=== PATIENT | female | born 1995 | race African-American/Black ===

== ENCOUNTER 2017-04-27 12:40 | Emergency (ER) | payer MEDICAID ==
[~2017-04-27] VITALS: Ht 172.7 cm; Wt 120.0 kg
[2017-04-27] MEDS ORDERED: ACETAMINOPHEN 325MG TABLET ONE (12:51)
[2017-04-27] MEDS ORDERED: SODIUM CHLORIDE 0.9% 1,000 ML IV ONE (14:49)
[2017-04-27] MEDS ORDERED: MORPHINE SULFATE 4 MG/ML CPJ (NOT FOR IM USE) IV STA (14:49)
[2017-04-27] MEDS ORDERED: ONDANSETRON HCL 4MG/2ML VIAL IV STA (14:49)
[2017-04-27] MEDS ORDERED: ACETAMINOPHEN 500MG TABLET PO ONE (15:00)
[2017-04-27] MEDS ORDERED: CEFTRIAXONE 1 G PREMIX 50 ML IV ONE (15:00)
[2017-04-27] MEDS ORDERED: LIDOCAINE HCL 1% 20ML VIAL (Pyxis) INJ MC ONE (15:00)
[2017-04-27] MEDS ORDERED: MORPHINE SULFATE 4 MG/ML CPJ (NOT FOR IM USE) IV ONE ×2 (17:15→17:45)
[2017-04-27] MEDS ORDERED: ONDANSETRON HCL 4MG/2ML VIAL IV ONE (17:45)
[2017-04-27 18:10] VITALS: BP 128/70
== END 2017-04-27 19:01 | disposition home or self-care (01) ==
LOC: ER 12:54
DX: L03.116 Cellulitis of left lower limb (principal); L02.416 Cutaneous abscess of left lower limb; I10 Essential (primary) hypertension
CPT/HCPCS: 10060; 96365; 96366; 96375; 96376; 99285; J0696; J2270; J2405; J3490; J7030; X7700; Z7610

== ENCOUNTER 2021-02-15 21:49 | Emergency (ER) | payer SELFPAY ==
[~2021-02-15] VITALS: Ht 170.2 cm; Wt 151.0 kg
[2021-02-16] MEDS ORDERED: ACETAMINOPHEN 325MG TABLET PO ONE (01:00)
[2021-02-16] MEDS ORDERED: IBUPROFEN 400MG TABLET PO ONE (01:00)
[2021-02-16 01:48] VITALS: BP 145/90
== END 2021-02-16 01:52 | disposition home or self-care (01) ==
LOC: ER 21:49
DX: R60.0 Localized edema (principal)
CPT/HCPCS: 81025; 93971; 99284

== ENCOUNTER 2022-01-27 12:15 | Emergency (ER) | payer MEDICAID, OTHER ==
[~2022-01-27] VITALS: Ht 160 cm; Wt 120.0 kg
[~2022-01-27 12:15] MED LIST: ASPI-1406 MT; DILT120C88 MT
[2022-01-27] MEDS ORDERED: ONDANSETRON HCL 4MG/2ML INJ IV STA (12:22)
[2022-01-27] MEDS ORDERED: MORPHINE SULFATE 4 MG/ML CPJ (NOT FOR IM USE) IV STA (12:22)
[2022-01-27] MEDS ORDERED: SODIUM CHLORIDE 0.9% 1,000 ML IV ONE (12:30)
[2022-01-27 12:54] LABS: BASOPHILS % 0.4 % (0.0-2.0); EOSINOPHILS % 1.1 % (0.0-5.0); HEMATOCRIT. 34.5 % (36.0-48.0); HEMOGLOBIN. 11.5 g/dL (12.0-16.0); LYMPHOCYTES % 25.6 % (20.0-50.0); MEAN CORPUSCULAR HEMOGLOBIN 25.2 pg (28.0-32.0); MEAN CORPUSCULAR VOLUME 75.3 fL (81.0-99.0); MEAN PLATELET VOLUME 9.1 fl (7.4-10.4); MONOCYTES % 9.1 % (2.0-8.0); NEUTROPHILS % 63.8 % (40.0-76.0); PLATELET 259 x1000/uL (130-400); RED BLOOD CELL COUNT 4.59 mill/uL (4.2-5.4); RED CELL DISTRIBUTION WIDTH 14.4 % (11.6-14.6)
[2022-01-27 13:00] LABS: CHLORIDE 109 mEq/L (98-107)
[2022-01-27 13:12] LABS: PROTHROMBIN TIME 10.5 sec (9.6-11.0)
[2022-01-27 13:22] LABS: CLARITY URINE CLEAR (CLEAR); COLOR URINE YELLOW (YELLOW); KETONES URINE NEGATIVE (NEGATIVE); LEUKOCYTE ESTERASE URINE NEGATIVE (NEGATIVE); NITRITE URINE NEGATIVE (NEGATIVE); OCCULT BLOOD URINE 2+ (NEGATIVE); PH URINE 7.5 (4.5-8.0); PROTEIN URINE NEGATIVE (NEGATIVE); SPECIFIC GRAVITY URINE 1.018 (1.005-1.030); UROBILINOGEN URINE 0.2 E.U./dL (0.2-1.0)
[2022-01-27 13:26] LABS: B-HCG QUANTITATIVE < 1 mIU/mL (<3)
[2022-01-27] MEDS ORDERED: LORAZEPAM 2MG/ML CPJ IV ONE (15:15)
[2022-01-27] MEDS ORDERED: KETOROLAC 30MG/ML VIAL IV ONE (15:15)
[2022-01-27] MEDS ORDERED: IBUP-2030 MT (16:59)
[2022-01-27] MEDS ORDERED: FERR325T23 MT (16:59)
[2022-01-27 18:02] VITALS: BP 125/65
== END 2022-01-27 18:07 | disposition home or self-care (01) ==
LOC: ER 12:15
DX: N93.8 Other specified abnormal uterine and vaginal bleeding (principal); R10.2 Pelvic and perineal pain; I10 Essential (primary) hypertension; J45.909 Unspecified asthma, uncomplicated
CPT/HCPCS: 36415; 76830; 76856; 80053; 81003; 81025; 83690; 84702; 85025; 85610; 86850; 86900; 86901; 96361; 96374; 96375; 99284; J1885; J2060; J2270; J2405; J7030

== ENCOUNTER 2022-03-11 10:54 | Inpatient (IN) | payer MEDICAID, OTHER ==
[~2022-03-11] VITALS: Ht 177.8 cm; Wt 135.6 kg
[~2022-03-11 10:54] MED LIST changes: +FERR325T23 MT; +IBUP-2030 MT
[2022-03-11] MEDS ORDERED: ACETAMINOPHEN 325MG TABLET PO STA (11:09)
[2022-03-11] MEDS ORDERED: ONDANSETRON HCL 4MG/2ML INJ IV STA (11:09)
[2022-03-11] MEDS ORDERED: SODIUM CHLORIDE 0.9% 1,000 ML IV ONE (11:15)
[2022-03-11 12:10] LABS: BASOPHILS % 0.3 % (0.0-2.0); EOSINOPHILS % 0.1 % (0.0-5.0); HEMATOCRIT. 38.7 % (36.0-48.0); HEMOGLOBIN. 12.5 g/dL (12.0-16.0); LYMPHOCYTES % 7.2 % (20.0-50.0); MEAN CORPUSCULAR HEMOGLOBIN 24.7 pg (28.0-32.0); MEAN CORPUSCULAR VOLUME 76.2 fL (81.0-99.0); MEAN PLATELET VOLUME 9.8 fl (7.4-10.4); MONOCYTES % 4.7 % (2.0-8.0); NEUTROPHILS % 87.7 % (40.0-76.0); PLATELET 328 x1000/uL (130-400); RED BLOOD CELL COUNT 5.07 mill/uL (4.2-5.4); RED CELL DISTRIBUTION WIDTH 14.5 % (11.6-14.6)
[2022-03-11 12:17] LABS: CHLORIDE 107 mEq/L (98-107)
[2022-03-11 12:21] LABS: HCG SCREEN NEGATIVE
[2022-03-11 12:29] LABS: CLARITY URINE TURBID (CLEAR); COLOR URINE RED (YELLOW); KETONES URINE 2+ (NEGATIVE); LEUKOCYTE ESTERASE URINE 2+ (NEGATIVE); NITRITE URINE POSITIVE (NEGATIVE); OCCULT BLOOD URINE 3+ (NEGATIVE); PROTEIN URINE 2+ (NEGATIVE); SPECIFIC GRAVITY URINE 1.019 (1.005-1.030)
[2022-03-11] MEDS ORDERED: ONDANSETRON HCL 4MG/2ML INJ IV ONE ×2 (13:15→16:15)
[2022-03-11] MEDS ORDERED: CEFTRIAXONE 1 G PREMIX 50 ML IV ONE (13:30)
[2022-03-11] MEDS ORDERED: KETOROLAC 15MG/ML VIAL IV ONE (13:45)
[2022-03-11] MEDS ORDERED: MORPHINE SULFATE 4 MG/ML CPJ (NOT FOR IM USE) IV ONE (17:30)
[2022-03-11] MEDS: HYDROCODONE/ACETAMINOPHEN 10/325MG TABLET PO PRN (21:25)
[2022-03-12] MEDS: HYDROCODONE/ACETAMINOPHEN 10/325MG TABLET PO PRN ×4 (03:52→20:34)
[2022-03-12] MEDS ORDERED: ACETAMINOPHEN 325MG TABLET PO PRN (10:30)
[2022-03-12] MEDS ORDERED: ONDANSETRON HCL 4MG/2ML INJ IV PRN (10:30)
[2022-03-12] MEDS ORDERED: NALOXONE HCL 0.4MG/ML VIAL IV PRN (10:30)
[2022-03-12] MEDS: AMLODIPINE 10MG TABLET PO SCH (11:35)
[2022-03-12 12:00] VITALS: BP 138/76
[2022-03-12] MEDS ORDERED: CEFTRIAXONE 1,000 MG in DEXTROSE 5% WATER 50 ML IV SCH (13:00)
[2022-03-12] MEDS ORDERED: HYDR12.54 PO (13:48)
[2022-03-12 16:00] VITALS: BP 142/77
[2022-03-12 16:10] VITALS: BP 138/76
[2022-03-12] MEDS: CEFTRIAXONE 1,000 MG in DEXTROSE 5% WATER 50 ML IV SCH (16:52)
[2022-03-12 20:00] VITALS: BP 106/50
[2022-03-12] MEDS ORDERED: LORAZEPAM 1MG TABLET PO PRN (20:15)
[2022-03-13] VITALS: BP 99/50
[2022-03-13 04:00] VITALS: BP_SYST 162; BP_SYST 99; BP_DIAS 50; BP_DIAS 85
[2022-03-13] MEDS: HYDROCODONE/ACETAMINOPHEN 10/325MG TABLET PO PRN ×4 (05:53→21:35)
[2022-03-13] MEDS ORDERED: NICOTINE 14MG PATCH TD SCH (09:00)
[2022-03-13] MEDS: AMLODIPINE 10MG TABLET PO SCH (10:03)
[2022-03-13] MEDS ORDERED: KETOROLAC 30MG/ML VIAL IV PRN (12:00)
[2022-03-13 13:17] LABS: BASOPHILS % 0.5 % (0.0-2.0); EOSINOPHILS % 0.9 % (0.0-5.0); HEMATOCRIT. 35.3 % (36.0-48.0); HEMOGLOBIN. 11.5 g/dL (12.0-16.0); LYMPHOCYTES % 27.6 % (20.0-50.0); MEAN PLATELET VOLUME 9.1 fl (7.4-10.4); MONOCYTES % 11.6 % (2.0-8.0); NEUTROPHILS % 59.4 % (40.0-76.0); PLATELET 291 x1000/uL (130-400); RED BLOOD CELL COUNT 4.59 mill/uL (4.2-5.4); RED CELL DISTRIBUTION WIDTH 14.5 % (11.6-14.6)
[2022-03-13 13:31] LABS: CHLORIDE 107 mEq/L (98-107)
[2022-03-13] MEDS: CEFTRIAXONE 1,000 MG in DEXTROSE 5% WATER 50 ML IV SCH ×2 (16:00→16:31)
[2022-03-13 20:00] VITALS: BP 128/85
[2022-03-14] VITALS: BP 130/88
[2022-03-14 01:53] VITALS: BP 130/88
[2022-03-14 04:00] VITALS: BP 125/87
[2022-03-14 08:00] VITALS: BP 152/96
[2022-03-14] MEDS: HYDROCODONE/ACETAMINOPHEN 10/325MG TABLET PO PRN ×2 (08:58→13:39)
[2022-03-14] MEDS: AMLODIPINE 10MG TABLET PO SCH (08:59)
[2022-03-14] MEDS ORDERED: LEVO500T89 MT (09:11)
[2022-03-14 12:00] VITALS: BP 132/87
[2022-03-14 15:22] VITALS: BP_SYST 125; BP_SYST 152; BP_DIAS 78; BP_DIAS 96
== END 2022-03-14 15:54 | disposition home or self-care (01) | DRG 720 ==
LOC: ER 10:54 → MICUSO 17:22 → 6EST 03-12 12:43
PROVIDERS: ADMIT Internal Medicine; ATTEND Internal Medicine
DX: A41.9 Sepsis, unspecified organism (principal); E66.01 Morbid (severe) obesity due to excess calories; N39.0 Urinary tract infection, site not specified; F17.210 Nicotine dependence, cigarettes, uncomplicated; I10 Essential (primary) hypertension; N93.8 Other specified abnormal uterine and vaginal bleeding; I16.0 Hypertensive urgency; J45.909 Unspecified asthma, uncomplicated; F12.90 Cannabis use, unspecified, uncomplicated; Z79.82 Long term (current) use of aspirin; Z79.899 Other long term (current) drug therapy; Z79.1 Long term (current) use of non-steroidal anti-inflammatories (NSAID); Z71.6 Tobacco abuse counseling; Z68.41 Body mass index [BMI] 40.0-44.9, adult
CPT/HCPCS: 36415; 74176; 76830; 76856; 80048; 80053; 81003; 84703; 85025; 87077; 99285; J0696; J1885; J2270; J2405; J7030; J7060

== ENCOUNTER 2023-05-31 06:09 | Emergency (ER) | payer MEDICAID, OTHER ==
[~2023-05-31] VITALS: Ht 167.6 cm; Wt 109.0 kg
[~2023-05-31 06:09] MED LIST changes: +HYDR12.54 PO; +LEVO-65 MT
[2023-05-31 06:18] VITALS: O2SAT 100
[2023-05-31] MEDS ORDERED: ONDANSETRON HCL 4MG/2ML INJ IV STA (06:31)
[2023-05-31] MEDS ORDERED: KETOROLAC 30MG/ML VIAL IV STA (06:31)
[2023-05-31 06:39] LABS: BASOPHILS % 0.4 % (0.0-2.0); EOSINOPHILS % 1.3 % (0.0-5.0); HEMATOCRIT. 34.4 % (36.0-48.0); HEMOGLOBIN. 11.3 g/dL (12.0-16.0); LYMPHOCYTES % 19.6 % (20.0-50.0); MEAN CORPUSCULAR HEMOGLOBIN 25.1 pg (28.0-32.0); MEAN CORPUSCULAR VOLUME 76.7 fL (81.0-99.0); MONOCYTES % 8.9 % (2.0-8.0); NEUTROPHILS % 69.8 % (40.0-76.0); PLATELET 306 x1000/uL (130-400); RED BLOOD CELL COUNT 4.48 mill/uL (4.2-5.4); RED CELL DISTRIBUTION WIDTH 14.8 % (11.6-14.6)
[2023-05-31] MEDS ORDERED: SODIUM CHLORIDE 0.9% 1,000 ML IV ONE (06:45)
[2023-05-31 06:49] LABS: CHLORIDE 113 mEq/L (98-107)
[2023-05-31] MEDS ORDERED: ACETAMINOPHEN 325MG TABLET PO ONE (07:00)
[2023-05-31 07:21] LABS: CLARITY URINE CLEAR (CLEAR); COLOR URINE YELLOW (YELLOW); KETONES URINE NEGATIVE (NEGATIVE); LEUKOCYTE ESTERASE URINE NEGATIVE (NEGATIVE); NITRITE URINE NEGATIVE (NEGATIVE); OCCULT BLOOD URINE NEGATIVE (NEGATIVE); PROTEIN URINE NEGATIVE (NEGATIVE); SPECIFIC GRAVITY URINE 1.024 (1.005-1.030)
[2023-05-31 10:46] LABS: *AMPHETAMINES SCREEN URINE NEGATIVE (NEGATIVE); *BARBITURATES SCREEN URINE NEGATIVE (NEGATIVE); *BENZODIAZEPINES SCREEN URINE NEGATIVE (NEGATIVE); *COCAINE SCREEN URINE NEGATIVE (NEGATIVE); CANNABINOID URINE SCREEN PRESUMTIVE POSITIVE (NEGATIVE); METHADONE URINE SCREEN NEGATIVE (NEGATIVE); OPIATES URINE SCREEN NEGATIVE (NEGATIVE); PHENCYCLIDINE URINE SCREEN NEGATIVE (NEGATIVE)
[2023-05-31] MEDS ORDERED: TOPUD MT (10:59)
[2023-05-31] MEDS ORDERED: ACETAMINOPHEN WITH CODEINE 300/30MG TABLET PO ONE (11:00)
[2023-05-31 11:23] VITALS: BP 127/70; PULSE 73; RESP 20; TEMP 98.5
== END 2023-05-31 11:30 | disposition home or self-care (01) ==
LOC: ER 06:09
DX: R10.30 Lower abdominal pain, unspecified (principal); R11.0 Nausea; J45.909 Unspecified asthma, uncomplicated; I10 Essential (primary) hypertension
CPT/HCPCS: 80053; 80305; 81003; 81025; 84702; 83690; 85025; 36415; 76830; 76856; 96361; 96374; 99285; J2405; J7030; Z7610

== ENCOUNTER 2023-06-11 14:59 | Emergency (ER) | payer MEDICAID ==
[~2023-06-11] VITALS: Ht 167.6 cm; Wt 113.0 kg
[~2023-06-11 14:59] MED LIST changes: +TOPUD MT
[2023-06-11 15:21] VITALS: BP 135/95; PULSE 122; RESP 20; TEMP 98.5; O2SAT 99
[2023-06-11 17:44] LABS: BASOPHILS % 0.6 % (0.0-2.0); EOSINOPHILS % 1.3 % (0.0-5.0); HEMATOCRIT. 36.8 % (36.0-48.0); LYMPHOCYTES % 22.7 % (20.0-50.0); MEAN CORPUSCULAR HEMOGLOBIN 25.1 pg (28.0-32.0); MEAN CORPUSCULAR VOLUME 76.8 fL (81.0-99.0); MONOCYTES % 9.8 % (2.0-8.0); NEUTROPHILS % 65.6 % (40.0-76.0); PLATELET 318 x1000/uL (130-400); RED CELL DISTRIBUTION WIDTH 14.9 % (11.6-14.6)
[2023-06-11 18:02] LABS: CHLORIDE 108 mEq/L (98-107)
[2023-06-11 18:11] LABS: HCG SCREEN POSITIVE
[2023-06-11] MEDS ORDERED: ACETAMINOPHEN 325MG TABLET PO PRN (18:15)
[2023-06-11 19:23] LABS: CLARITY URINE CLOUDY (CLEAR); COLOR URINE DARK YELLOW (YELLOW); KETONES URINE TRACE (NEGATIVE); LEUKOCYTE ESTERASE URINE NEGATIVE (NEGATIVE); NITRITE URINE NEGATIVE (NEGATIVE); OCCULT BLOOD URINE TRACE (NEGATIVE); PROTEIN URINE 1+ (NEGATIVE); SPECIFIC GRAVITY URINE 1.042 (1.005-1.030)
[2023-06-11 19:33] LABS: *AMPHETAMINES SCREEN URINE NEGATIVE (NEGATIVE); *BARBITURATES SCREEN URINE NEGATIVE (NEGATIVE); *BENZODIAZEPINES SCREEN URINE NEGATIVE (NEGATIVE); *COCAINE SCREEN URINE NEGATIVE (NEGATIVE); METHADONE URINE SCREEN NEGATIVE (NEGATIVE); OPIATES URINE SCREEN NEGATIVE (NEGATIVE); PHENCYCLIDINE URINE SCREEN NEGATIVE (NEGATIVE)
[2023-06-11 19:36] LABS: CANNABINOID URINE SCREEN PRESUMTIVE POSITIVE (NEGATIVE)
[2023-06-11] MEDS ORDERED: ACET-2708 MT (19:50)
[2023-06-11] MEDS ORDERED: PREN1.4T2 MT (19:54)
== END 2023-06-11 20:04 | disposition home or self-care (01) ==
LOC: ER 14:59
DX: O46.91 Antepartum hemorrhage, unspecified, first trimester (principal); Z3A.01 Less than 8 weeks gestation of pregnancy
CPT/HCPCS: 36415; 76801; 80053; 80305; 81003; 81025; 84702; 84703; 85025; 99284

== ENCOUNTER 2023-07-20 11:45 | Emergency (ER) | payer MEDICAID, OTHER ==
[~2023-07-20] VITALS: Ht 167.6 cm; Wt 140.6 kg
[~2023-07-20 11:45] MED LIST changes: +ACET-2708 MT; +PREN1.4T2 MT
[2023-07-20 12:19] VITALS: BP 147/107; PULSE 98; RESP 16; TEMP 98.5; O2SAT 98
[2023-07-20 13:38] LABS: BASOPHILS % 0.1 % (0.0-2.0); DIFFERENTIAL COMMENT 0; EOSINOPHILS % 1.6 % (0.0-5.0); HEMATOCRIT. 33.5 % (36.0-48.0); HEMOGLOBIN. 11.3 g/dL (12.0-16.0); LYMPHOCYTES % 15.2 % (20.0-50.0); MEAN CORPUSCULAR HEMOGLOBIN 25.9 pg (28.0-32.0); MEAN CORPUSCULAR HGB CONC 33.8 g/dL (31.0-37.0); MEAN CORPUSCULAR VOLUME 76.7 fL (81.0-99.0); MEAN PLATELET VOLUME 9.2 fl (7.4-10.4); MONOCYTES % 6.5 % (2.0-8.0); NEUTROPHILS % 76.6 % (40.0-76.0); PLATELET 261 x1000/uL (130-400); RED BLOOD CELL COUNT 4.38 mill/uL (4.2-5.4); RED CELL DISTRIBUTION WIDTH 14.8 % (11.6-14.6); WHITE BLOOD COUNT 10.8 x1000/uL (4.5-11.0)
[2023-07-20 13:47] LABS: CHLORIDE 107 mEq/L (98-107); INDEX HEMOLYSI 1 (1-3); INDEX ICTERIC 1 (1-4); INDEX LIPEMIC 1 (1-3); POTASSIUM 3.3 mEq/L (3.5-5.1); SODIUM 136 mEq/L (136-145)
[2023-07-20 13:58] LABS: ALANINE AMINOTRANSFERASE 27 IU/L (13-61); ASPARTATE AMINOTRANSFERASE 18 IU/L (15-37); BILIRUBIN TOTAL 0.4 mg/dL (0.1-1.0); CALCIUM 9.2 mg/dL (8.5-10.1); CARBON DIOXIDE 21 mEq/L (21-32); CREATININE 0.5 mg/dL (0.6-1.3); GLUCOSE 101 mg/dL (70-105); PROTEIN TOTAL 6.9 g/dL (6.0-8.3); UREA NITROGEN BLOOD 7 mg/dL (7-21)
[2023-07-20 14:15] LABS: B-HCG QUANTITATIVE 84813 mIU/mL (<3)
== END 2023-07-20 15:22 | disposition home or self-care (01) ==
LOC: ER 11:45
DX: O10.911 Unspecified pre-existing hypertension complicating pregnancy, first trimester (principal); O26.891 Other specified pregnancy related conditions, first trimester; O99.511 Diseases of the respiratory system complicating pregnancy, first trimester; I48.91 Unspecified atrial fibrillation; J45.909 Unspecified asthma, uncomplicated; Z3A.11 11 weeks gestation of pregnancy; Z79.899 Other long term (current) drug therapy; Z88.8 Allergy status to other drugs, medicaments and biological substances; Z91.018 Allergy to other foods
CPT/HCPCS: 36415; 80053; 84702; 85025; 99283

== ENCOUNTER 2023-08-05 11:54 | Emergency (ER) | payer MEDICAID, OTHER ==
[~2023-08-05] VITALS: Ht 175.3 cm; Wt 108.0 kg
[2023-08-05 12:13] VITALS: BP 145/95; PULSE 87; RESP 20; O2SAT 98
[2023-08-05 13:15] LABS: BASOPHILS % 0.1 % (0.0-2.0); DIFFERENTIAL COMMENT 0; EOSINOPHILS % 1.6 % (0.0-5.0); HEMATOCRIT. 31.4 % (36.0-48.0); HEMOGLOBIN. 10.3 g/dL (12.0-16.0); MEAN CORPUSCULAR HEMOGLOBIN 25.5 pg (28.0-32.0); MEAN CORPUSCULAR HGB CONC 32.8 g/dL (31.0-37.0); MEAN CORPUSCULAR VOLUME 77.7 fL (81.0-99.0); MEAN PLATELET VOLUME 9.4 fl (7.4-10.4); MONOCYTES % 8.8 % (2.0-8.0); NEUTROPHILS % 72.5 % (40.0-76.0); PLATELET 268 x1000/uL (130-400); RED BLOOD CELL COUNT 4.04 mill/uL (4.2-5.4); RED CELL DISTRIBUTION WIDTH 14.9 % (11.6-14.6); WHITE BLOOD COUNT 12.5 x1000/uL (4.5-11.0)
[2023-08-05 13:51] LABS: CHLORIDE 108 mEq/L (98-107); INDEX HEMOLYSI 1 (1-3); INDEX ICTERIC 1 (1-4); INDEX LIPEMIC 1 (1-3); POTASSIUM 3.6 mEq/L (3.5-5.1); SODIUM 137 mEq/L (136-145)
[2023-08-05 14:00] VITALS: TEMP 98.3
[2023-08-05] MEDS ORDERED: ACETAMINOPHEN 325MG TABLET PO ONE (14:00)
[2023-08-05 14:35] LABS: CLARITY URINE CLEAR (CLEAR); COLOR URINE YELLOW (YELLOW); GLUCOSE URINE NEGATIVE (NEGATIVE); KETONES URINE NEGATIVE (NEGATIVE); LEUKOCYTE ESTERASE URINE NEGATIVE (NEGATIVE); NITRITE URINE NEGATIVE (NEGATIVE); OCCULT BLOOD URINE NEGATIVE (NEGATIVE); PH URINE 8.5 (4.5-8.0); PROTEIN URINE NEGATIVE (NEGATIVE); SPECIFIC GRAVITY URINE 1.015 (1.005-1.030); UROBILINOGEN URINE 0.2 E.U./dL (0.2-1.0)
[2023-08-05 14:44] LABS: ALANINE AMINOTRANSFERASE 47 IU/L (13-61); ALBUMIN 2.9 g/dL (3.4-5.0); ASPARTATE AMINOTRANSFERASE 27 IU/L (15-37); BILIRUBIN TOTAL 0.2 mg/dL (0.1-1.0); CALCIUM 9.1 mg/dL (8.5-10.1); CARBON DIOXIDE 21 mEq/L (21-32); CREATININE 0.5 mg/dL (0.6-1.3); PROTEIN TOTAL 6.5 g/dL (6.0-8.3); UREA NITROGEN BLOOD 6 mg/dL (7-21)
[2023-08-05 15:31] LABS: GLUCOSE 82 mg/dL (70-105)
== END 2023-08-05 16:32 | disposition home or self-care (01) ==
LOC: ER 11:54
DX: O26.892 Other specified pregnancy related conditions, second trimester (principal); M79.89 Other specified soft tissue disorders; Z3A.14 14 weeks gestation of pregnancy
CPT/HCPCS: 36415; 80053; 81003; 81025; 85025; 93971; 99284

== ENCOUNTER 2023-09-05 17:48 | Emergency (ER) | payer MEDICAID ==
[~2023-09-05] VITALS: Ht 177.8 cm; Wt 137.0 kg
[2023-09-05] MEDS ORDERED: labetalol (17:54)
[2023-09-05 17:55] VITALS: TEMP 98.2; O2SAT 98
[2023-09-05] MEDS ORDERED: SODIUM CHLORIDE 0.9% 1,000 ML IV ONE (18:15)
[2023-09-05] MEDS ORDERED: ACETAMINOPHEN 325MG TABLET PO STA (18:15)
[2023-09-05] MEDS ORDERED: MORPHINE SULFATE 2 MG/ML CPJ (NOT FOR IM USE) IV ONE ×2 (18:30→22:45)
[2023-09-05 18:38] LABS: CLARITY URINE CLOUDY (CLEAR); COLOR URINE YELLOW (YELLOW); GLUCOSE URINE NEGATIVE (NEGATIVE); KETONES URINE NEGATIVE (NEGATIVE); LEUKOCYTE ESTERASE URINE NEGATIVE (NEGATIVE); NITRITE URINE NEGATIVE (NEGATIVE); OCCULT BLOOD URINE NEGATIVE (NEGATIVE); PROTEIN URINE NEGATIVE (NEGATIVE); SPECIFIC GRAVITY URINE 1.018 (1.005-1.030); UROBILINOGEN URINE 0.2 E.U./dL (0.2-1.0)
[2023-09-05 18:42] LABS: BACTERIA URINE NONE SEEN; RBC URINE 0-2 /hpf (0-2); SQUAMOUS EPITHELIAL CELL URINE 1+ /lpf (RARE/1+); YEAST URINE NONE SEEN
[2023-09-05 19:46] LABS: BASOPHILS % 0.4 % (0.0-2.0); DIFFERENTIAL COMMENT 0; EOSINOPHILS % 1.4 % (0.0-5.0); HEMATOCRIT. 30.9 % (36.0-48.0); HEMOGLOBIN. 9.9 g/dL (12.0-16.0); LYMPHOCYTES % 19.5 % (20.0-50.0); MEAN CORPUSCULAR HEMOGLOBIN 25.6 pg (28.0-32.0); MEAN CORPUSCULAR HGB CONC 32.1 g/dL (31.0-37.0); MEAN CORPUSCULAR VOLUME 79.6 fL (81.0-99.0); MEAN PLATELET VOLUME 9.8 fl (7.4-10.4); MONOCYTES % 11.2 % (2.0-8.0); NEUTROPHILS % 67.5 % (40.0-76.0); PLATELET 258 x1000/uL (130-400); RED BLOOD CELL COUNT 3.88 mill/uL (4.2-5.4); RED CELL DISTRIBUTION WIDTH 14.4 % (11.6-14.6); WHITE BLOOD COUNT 13.7 x1000/uL (4.5-11.0)
[2023-09-05 19:52] LABS: INR 0.9; PROTHROMBIN TIME 9.6 sec (9.6-11.0)
[2023-09-05 20:05] LABS: CHLORIDE 111 mEq/L (98-107); INDEX HEMOLYSI 1 (1-3); INDEX ICTERIC 1 (1-4); INDEX LIPEMIC 1 (1-3); POTASSIUM 3.7 mEq/L (3.5-5.1); SODIUM 138 mEq/L (136-145)
[2023-09-05 20:06] LABS: HCG SCREEN POSITIVE
[2023-09-05 20:11] LABS: ALANINE AMINOTRANSFERASE 27 IU/L (13-61); ALBUMIN 2.7 g/dL (3.4-5.0); ASPARTATE AMINOTRANSFERASE 19 IU/L (15-37); BILIRUBIN TOTAL 0.1 mg/dL (0.1-1.0); CALCIUM 8.5 mg/dL (8.5-10.1); CARBON DIOXIDE 22 mEq/L (21-32); CREATININE 0.3 mg/dL (0.6-1.3); GLUCOSE 73 mg/dL (70-105); PROTEIN TOTAL 6.6 g/dL (6.0-8.3); UREA NITROGEN BLOOD 8 mg/dL (7-21)
[2023-09-06 02:30] VITALS: BP 131/79; PULSE 88; RESP 20
[2023-09-06] MEDS ORDERED: MORPHINE SULFATE 2 MG/ML CPJ (NOT FOR IM USE) IV NR (02:30)
[2023-09-06] MEDS ORDERED: METOCLOPRAMIDE HCL 10MG/2ML VIAL IV ONE (03:15)
[2023-09-06] MEDS ORDERED: NITR-87 MT (05:11)
[2023-09-06] MEDS ORDERED: T3 PO (05:11)
== END 2023-09-06 06:42 | disposition home or self-care (01) ==
LOC: ER 17:48
DX: O26.892 Other specified pregnancy related conditions, second trimester (principal); R10.9 Unspecified abdominal pain; Z3A.20 20 weeks gestation of pregnancy
CPT/HCPCS: 99285; 74176; 96374; 76700; 76805; 71045; 96361; 80053; 81003; 81025; 84703; 83605; 83690; 85025; 85610; 86850; 86900; 86901; 36415; 93005; 96376; J2270 ×2; J7030

== ENCOUNTER 2023-11-08 11:22 | Emergency (ER) | payer MEDICAID ==
[~2023-11-08] VITALS: Ht 175.3 cm; Wt 136.0 kg
[~2023-11-08 11:22] MED LIST changes: +NITR-87 MT; +T3 PO; +labetalol
[2023-11-08 11:24] VITALS: O2SAT 100
[2023-11-08] MEDS ORDERED: METOPROLOL TARTRATE 5MG/5ML VIAL IV ONE (12:00)
[2023-11-08] MEDS ORDERED: ENOXAPARIN 120MG/0.8ML SYR SUBCUT ONE (12:00)
[2023-11-08] MEDS ORDERED: LORAZEPAM 2MG/ML SYR IV NR (12:00)
[2023-11-08] MEDS ORDERED: ENOXAPARIN 150MG/ML SYR SUBCUT NR (12:15)
[2023-11-08] MEDS ORDERED: METOPROLOL TARTRATE 25MG TABLET PO ONE (12:15)
[2023-11-08] MEDS ORDERED: ESMOLOL 2500MG PREMIX 250 ML IV ONE ×2 (16:45→17:30)
[2023-11-08 18:13] VITALS: TEMP 98.6
[2023-11-08] MEDS ORDERED: METOPROLOL TARTRATE 25MG TABLET PO SCH (21:00)
[2023-11-08] MEDS ORDERED: MAGNESIUM 2 G PREMIX 50 ML IV ONE (23:00)
[2023-11-08] MEDS ORDERED: ONDANSETRON HCL 4MG/2ML INJ IV ONE (23:00)
[2023-11-08 23:30] VITALS: BP 113/83; PULSE 114; RESP 19
== END 2023-11-08 23:46 | disposition short-term general hospital (02) ==
LOC: ER 11:30 → CANBEDREQ 11-10 10:16
DX: O99.412 Diseases of the circulatory system complicating pregnancy, second trimester (principal); I48.91 Unspecified atrial fibrillation; Z3A.27 27 weeks gestation of pregnancy; Z91.018 Allergy to other foods
CPT/HCPCS: 99291; 93306; 96365; 76805; 96375; 83735; 36415; 99292; 96372; J1650; J3490 ×2; J3475; J2405